=== PATIENT | male | born 1950 | race Asian ===

== ENCOUNTER → 2017-03-05 | Outpatient (CLI) | payer MEDICARE, OTHER | END | disposition home or self-care (01) | LOC: CFH 08:21 | PROVIDERS: ATTEND Family Medicine | DX: Z87.891 Personal history of nicotine dependence (principal) | CPT/HCPCS: 93978 ==

== ENCOUNTER 2018-08-27 09:50 | Emergency (ER) | payer MEDICARE, OTHER ==
[~2018-08-27] VITALS: Ht 167.6 cm; Wt 79.0 kg
[2018-08-27] MEDS ORDERED: METHOCARBAMOL 750 MG TABLET ONE ×2 (10:55→11:18)
--- NOTE | 2018-08-27 10:57 | NUR ---
68 y/o male presents to ed with c/o neck pain. "I HAVE SOME NECK PAIN THAT IS GIVING ME A HEADACHE. IT'S BEEN ABOUT A MONTH." NO C/O N/V/D, TRAUMA, SYNCOPE, CP, SOB.NO C/O NUMBNESS/TINGLING. PT PLACED ON CON TPULSE OX,NIBP. NO ACUTE DISTRESS NOTED
--- NOTE | 2018-08-27 10:59 | NUR ---
MEDICATION ADMINISTERED PER EMAR.
[2018-08-27] MEDS ORDERED: METHOCARBAMOL 750 MG TABLET PO ONE (11:00)
--- NOTE | 2018-08-27 11:01 | NUR ---
PT TO IMAGING
--- NOTE | 2018-08-27 11:20 | NUR ---
BEDSIDE REPORT TO KUSUM WRIGHT
[2018-08-27 11:24] LABS: BASOPHILS # (AUTO) 0.02 x10^3/uL (0-0.1); BASOPHILS % (AUTO) 0 % (0-1); EOSINOPHILS # (AUTO) 0.28 x10^3/uL (0-0.4); EOSINOPHILS % (AUTO) 4 % (1-7); LYMPHOCYTES # (AUTO) 1.19 x10^3/uL (1-3.4); LYMPHOCYTES % (AUTO) 18 % (22-44); MD NO; MEAN CORPUSCULAR HEMOGLOBIN 30.1 pg (27.5-34.5); MEAN CORPUSCULAR HGB CONC 33.8 g/dL (33.2-36.2); MEAN CORPUSCULAR VOLUME 89.2 fL (81-97); MEAN PLATELET VOLUME 7.5 fL (7.4-10.4); MONOCYTES # (AUTO) 0.48 x10^3/uL (0.2-0.8); MONOCYTES % (AUTO) 7 % (2-9); NEUTROPHILS # (AUTO) 4.76 x10^3/uL (1.8-6.8); NEUTROPHILS % (AUTO) 71 % (42-75); PLATELET COUNT 200 x10^3/uL (130-400); RED BLOOD COUNT 5.47 x10^6/uL (4.38-5.82); RED CELL DISTRIBUTION WIDTH 13.6 % (9.4-14.8)
--- NOTE | 2018-08-27 11:25 | NUR ---
Pt back to room from [facility]. JACOBY. Pt reconnected to all monitors. All safety measures in place. Pt states, "my pain is still a 10, every time I move or cough it hurts. It hurts behind my ear (left side), my shoulders, my back. the muscle relaxers didn't help." Call light within reach.
--- NOTE | 2018-08-27 11:29 | NUR ---
Pt unable to recall all home medications and doses at this time.
[2018-08-27 11:33] LABS: ANION GAP 8 mmol/L (5-15); CALCIUM 8.6 mg/dL (8.5-10.1); CHLORIDE 108 mmol/L (98-107); CREATININE 0.89 mg/dL (0.7-1.3)
[2018-08-27] MEDS ORDERED: OXYcodone/APAP 5/325MG TABLET PO ONE (12:00)
--- NOTE | 2018-08-27 12:01 | NUR ---
Pt transported on gurney to imaging.
[2018-08-27] MEDS ORDERED: OXYcodone/APAP 5/325MG TABLET ONE (12:13)
--- NOTE | 2018-08-27 12:15 | NUR ---
Pt ambulates with steady gait and balance to restroom. No obvious defecits observed.
--- NOTE | 2018-08-27 12:23 | NUR ---
Provided pt medication per EMAR. NADN. Pt appreciative. All call lights within reach. Pt connected to monitors. All safety measures in place.
[2018-08-27 12:47] VITALS: BP 172/100
== END 2018-08-27 12:49 | disposition home or self-care (01) ==
LOC: ED 11:53
DX: S16.1XXA Strain of muscle, fascia and tendon at neck level, initial encounter (principal); M50.30 Other cervical disc degeneration, unspecified cervical region; I10 Essential (primary) hypertension; E11.9 Type 2 diabetes mellitus without complications; X58.XXXA Exposure to other specified factors, initial encounter; Y93.89 Activity, other specified; Y92.89 Other specified places as the place of occurrence of the external cause; Y99.8 Other external cause status
CPT/HCPCS: 36415; 70450; 71046; 72050; 80048; 85025; 93005; 99284

== ENCOUNTER → 2020-12-28 | Outpatient (CLI) | payer MEDICARE | END | disposition home or self-care (01) | LOC: CFH 08:47 | PROVIDERS: ATTEND Family Medicine | DX: Z12.2 Encounter for screening for malignant neoplasm of respiratory organs (principal); I42.9 Cardiomyopathy, unspecified; J43.9 Emphysema, unspecified; F17.200 Nicotine dependence, unspecified, uncomplicated | CPT/HCPCS: 71271; 76700 ==

== ENCOUNTER → 2021-01-10 | Outpatient (CLI) | payer MEDICARE ==
[~2021-01-10] MED LIST: OMNIPAQUE 350 MG/ML, 100ML BOTTLE ONE
== END | disposition home or self-care (01) ==
LOC: RAD 10:24
PROVIDERS: ATTEND Family Medicine
DX: K76.0 Fatty (change of) liver, not elsewhere classified (principal); K76.89 Other specified diseases of liver; J98.4 Other disorders of lung; I70.0 Atherosclerosis of aorta
CPT/HCPCS: 74160; Q9967